=== PATIENT | male | born 1990 | race Caucasian/White ===

== ENCOUNTER 2017-09-25 17:17 | Observation (INO) | payer OTHER ==
[2017-09-25] MEDS ORDERED: SODIUM CHLORIDE 0.9% 1,000 ML IV STA (17:30)
[2017-09-25] MEDS ORDERED: PANTOPRAZOLE 40 MG/10 ML VIAL IVP STA (17:30)
[2017-09-25] MEDS ORDERED: ONDANSETRON 4 MG/2 ML VIAL IVP STA (17:30)
--- NOTE | 2017-09-25 17:35 | ED ---
General Adult HPI - General Chief complaint: Nausea/Vomiting/Diarrhea Stated complaint: Vomiting Time Seen by Provider: 09/25/17 17:26 Source: patient, RN notes reviewed Mode of arrival: ambulatory Limitations: no limitations - History of Present Illness Initial comments: Complaint and history of present illness a 27-year-old male here for complaint of nausea and vomiting for several days. The patient is a type I diabetic since age 7. Patient reports she was at [facility] last week for 2 days with DKA. Patient denies any blood in the vomit no diarrhea. Is urinating frequently. Denies any fevers. He states he's been good about controlling his sugars with his insulin. - Related Data Home Medications Medication Instructions Recorded Confirmed cloNIDine HCL [Catapres] 0.4 mg PO HS 11/01/15 09/25/17 Citalopram Hydrobromide [CeleXA] 20 mg PO DAILY 09/25/17 09/25/17 Insulin Glargine [Lantus] 20 unit SQ BID 09/25/17 09/25/17 Insulin Regular, Human [NovoLIN R] See Protocol SQ AC-TID PRN 09/25/17 09/25/17 metFORMIN HCL [Glucophage] 500 mg PO BID 09/25/17 09/25/17 Allergies Allergy/AdvReac Type Severity Reaction Status Date / Time adhesive tape Allergy Rash/Hives Verified 09/25/17 17:50 Review of Systems ROS Statement: Those systems with pertinent positive or pertinent negative responses have been documented in the HPI. You have systems denying any headache no visual acuity changes denies any chest pain denies shortness of breath nausea vomiting for the past 24 hours greenish in color no blood noted. Denies bowel movements. Frequent urinations. Denies fevers. Denies pain. All systems are reviewed. Past medical problems significant for insulin-dependent diabetes mellitus since age 7 episodes of DKA. Patient's surgeries include ear tubes when he was younger. Family history grandmother had breast cancer. He has ALLERGIES to adhesive tape. He does not smoke. Does papers. Drinks alcohol socially. ROS Other: All systems not noted in ROS Statement are negative. Past Medical History Past Medical History: Diabetes Mellitus History of Any Multi-Drug Resistant Organisms: None Reported Past Surgical History: Ear Surgery Past Psychological History: ADD/ADHD Smoking Status: Never smoker Past Alcohol Use History: Occasional Past Drug Use History: None Reported General Exam - General Exam Comments Initial Comments: General: The patient is awake and alert, insulin-dependent, vomiting multiple times over the past day or more. Feels sick. Vital signs temperature 98.2 pulse 123 respiratory rate 16 pulse ox on percent room air blood pressure 133/77 Eye: Pupils are equal, round and reactive to light, extra-ocular movements are intact ; there is normal conjunctiva bilaterally. No signs of icterus. Ears, nose, mouth and throat: There are moist mucous membranes and no oral lesions. Neck: The neck is supple, there is no tenderness . Cardiovascular: Tachycardic heart rate. No murmur, rub or gallop is appreciated. Respiratory: Lungs are clear to auscultation, respirations are non-labored, breath sounds are equal. No wheezes, stridor, rales, or rhonchi. Gastrointestinal: Nausea vomiting upset stomach no pain on palpation, active bowel sounds. Back: There is no tenderness to palpation in the midline. There is no obvious deformity. No rashes noted. Musculoskeletal: Normal ROM, no tenderness, There is no pedal edema. There is no calf tenderness or swelling. Sensation intact. Pulses equal bilaterally 2+. Neurological: CN II-XII intact, There are no obvious motor or sensory deficits. Coordination appears grossly intact. Speech is normal. No neuro deficits. Skin: Skin is warm and dry and no rashes or lesions are noted. Psychiatric: Cooperative, appropriate mood & affect, normal judgment. Limitations: no limitations Course Vital Signs 09/25/17 17:21 Temperature 98.2 F Pulse Rate 123 H Respiratory 16 Rate Blood Pressure 133/77 O2 Sat by Pulse 100 Oximetry Medical Decision Making - Medical Decision Making Decision making; patient's white count 7.7 hemoglobin 15 hematocrit of 49, potassium 4.7. CO2 6 BUN 9 creatinine 1.0 GFR greater than 60. Glucose 473. Amylase/ lipase are negative, acetone positive, urine clean. Feeling better at the first liter of IV fluids. He is receiving IV insulin and started on IV insulin drip per protocol. I discussed case with Dr. Chau on- call for the emergency room he'll see the patient in emergency room. The patient will be going to the ICU. I will discuss admission with the director of surgery - Lab Data Result diagrams: 09/25/17 17:55 09/25/17 17:55 Lab Results 09/25/17 09/25/17 09/25/17 Range/Units 17:41 17:55 17:55 WBC 7.7 (3.8-10.6) k/uL RBC 5.61 (4.30-5.90) m/uL Hgb 15.4 (13.0-17.5) gm/dL Hct 49.7 (39.0-53.0) % MCV 88.6 (80.0-100.0) fL MCH 27.5 (25.0-35.0) pg MCHC 31.0 (31.0-37.0) g/dL RDW 13.9 (11.5-15.5) % Plt Count 441 (150-450) k/uL Neutrophils % 76 % Lymphocytes % 17 % Monocytes % 5 % Eosinophils % 0 % Basophils % 1 % Neutrophils # 5.9 (1.3-7.7) k/uL Lymphocytes # 1.3 (1.0-4.8) k/uL Monocytes # 0.4 (0-1.0) k/uL Eosinophils # 0.0 (0-0.7) k/uL Basophils # 0.1 (0-0.2) k/uL Sodium 139 (137-145) mmol/L Potassium 4.7 (3.5-5.1) mmol/L Chloride 103 (98-107) mmol/L Carbon Dioxide 6 L* (22-30) mmol/L Anion Gap 30 mmol/L BUN 9 (9-20) mg/dL Creatinine 1.00 (0.66-1.25) mg/dL Est GFR (MDRD) Af Amer >60 (>60 ml/min/1.73 sqM) Est GFR (MDRD) Non-Af >60 (>60 ml/min/1.73 sqM) Glucose 473 H* (74-99) mg/dL POC Glucose (mg/dL) 418 H (75-99) mg/dL POC Glu Endocrinology Teacher ID McDaid, Mari Calcium 9.8 (8.4-10.2) mg/dL Total Bilirubin 0.5 (0.2-1.3) mg/dL AST 23 (17-59) U/L ALT 45 (21-72) U/L Alkaline Phosphatase 130 H (38-126) U/L Total Protein 8.7 H (6.3-8.2) g/dL Albumin 5.3 H (3.5-5.0) g/dL Amylase 42 (30-110) U/L Lipase 34 (23-300) U/L Urine Color Urine Appearance (Clear) Urine pH (5.0-8.0) Ur Specific Winters (1.001-1.035) Urine Protein (Negative) Urine Glucose (UA) (Negative) Urine Ketones (Negative) Urine Blood (Negative) Urine Nitrite (Negative) Urine Bilirubin (Negative) Urine Urobilinogen (<2.0) mg/dL Ur Leukocyte Esterase (Negative) Acetone, Qual Positive (Negative) 09/25/17 Range/Units 18:23 WBC (3.8-10.6) k/uL RBC (4.30-5.90) m/uL Hgb (13.0-17.5) gm/dL Hct (39.0-53.0) % MCV (80.0-100.0) fL MCH (25.0-35.0) pg MCHC (31.0-37.0) g/dL RDW (11.5-15.5) % Plt Count (150-450) k/uL Neutrophils % % Lymphocytes % % Monocytes % % Eosinophils % % Basophils % % Neutrophils # (1.3-7.7) k/uL Lymphocytes # (1.0-4.8) k/uL Monocytes # (0-1.0) k/uL Eosinophils # (0-0.7) k/uL Basophils # (0-0.2) k/uL Sodium (137-145) mmol/L Potassium (3.5-5.1) mmol/L Chloride (98-107) mmol/L Carbon Dioxide (22-30) mmol/L Anion Gap mmol/L BUN (9-20) mg/dL Creatinine (0.66-1.25) mg/dL Est GFR (MDRD) Af Amer (>60 ml/min/1.73 sqM) Est GFR (MDRD) Non-Af (>60 ml/min/1.73 sqM) Glucose (74-99) mg/dL POC Glucose (mg/dL) (75-99) mg/dL POC Glu Endocrinology Teacher ID Calcium (8.4-10.2) mg/dL Total Bilirubin (0.2-1.3) mg/dL AST (17-59) U/L ALT (21-72) U/L Alkaline Phosphatase (38-126) U/L Total Protein (6.3-8.2) g/dL Albumin (3.5-5.0) g/dL Amylase (30-110) U/L Lipase (23-300) U/L Urine Color Colorless Urine Appearance Clear (Clear) Urine pH 5.0 (5.0-8.0) Ur Specific Winters 1.016 (1.001-1.035) Urine Protein Trace H (Negative) Urine Glucose (UA) 4+ H (Negative) Urine Ketones 4+ H (Negative) Urine Blood Negative (Negative) Urine Nitrite Negative (Negative) Urine Bilirubin Negative (Negative) Urine Urobilinogen <2.0 (<2.0) mg/dL Ur Leukocyte Esterase Negative (Negative) Acetone, Qual (Negative) Disposition Clinical Impression: Diabetic ketoacidosis Disposition: ADMITTED IP TO THIS [facility] Condition: Serious Referrals: Titi Chau MD [Primary Care Provider] - 1-2 days
[2017-09-25 17:43] LABS: Glucose,Whole Blood 418 mg/dL (75-99)
[2017-09-25 18:07] LABS: Basophils # (A) 0.1 k/uL (0-0.2); Basophils % (A) 1 %; Eosinophils % (A) 0 %; HCT 49.7 % (39.0-53.0); HGB 15.4 gm/dL (13.0-17.5); Lymphocytes # (A) 1.3 k/uL (1.0-4.8); Lymphocytes % (A) 17 %; MCH 27.5 pg (25.0-35.0); MCV 88.6 fL (80.0-100.0); Mean Platelet Volume 7.2; Monocytes # (A) 0.4 k/uL (0-1.0); Monocytes % (A) 5 %; Neutrophils # (A) 5.9 k/uL (1.3-7.7); Neutrophils % (A) 76 %; Platelet Count 441 k/uL (150-450); RBC 5.61 m/uL (4.30-5.90); RDW 13.9 % (11.5-15.5); WBC 7.7 k/uL (3.8-10.6)
[2017-09-25 18:17] LABS: ALT 45 U/L (21-72); AST 23 U/L (17-59); Albumin 5.3 g/dL (3.5-5.0); Alkaline Phosphatase 130 U/L (38-126); Amylase 42 U/L (30-110); Blood Urea Nitrogen 9 mg/dL (9-20); Calcium 9.8 mg/dL (8.4-10.2); Chloride 103 mmol/L (98-107); Lipase 34 U/L (23-300); Potassium 4.7 mmol/L (3.5-5.1); Sodium 139 mmol/L (137-145); Total Bilirubin 0.5 mg/dL (0.2-1.3); Total Protein 8.7 g/dL (6.3-8.2)
[2017-09-25 18:39] LABS: Appearance,Urine Clear (Clear); Bilirubin,Urine Negative (Negative); Blood,Urine Negative (Negative); Color,Urine Colorless; Glucose,Urine (UA) 4+ (Negative); Leukocyte Esterase,Urine Negative (Negative); Nitrite,Urine Negative (Negative); Protein,Urine Trace (Negative); Specific Gravity,Urine 1.016 (1.001-1.035); Urobilinogen,Urine <2.0 mg/dL (<2.0)
[2017-09-25 18:41] LABS: Carbon Dioxide 6 mmol/L (22-30); Glucose 473 mg/dL (74-99)
[2017-09-25 18:42] LABS: Anion Gap 30 mmol/L
[2017-09-25] MEDS ORDERED: INSULIN REGULAR 100 UNIT/ML VIAL IV ONE (18:51)
[2017-09-25 19:01] LABS: Ketones,Urine 4+ (Negative)
[2017-09-25] MEDS: SODIUM CHLORIDE 0.9% 1,000 ML IV SCH ×2 (19:04→23:51)
[2017-09-25] MEDS: INSULIN REGULAR 100 UNIT in SODIUM CHLORIDE 0.9% 100 ML IV SCH (19:10)
[2017-09-25] MEDS ORDERED: ONDANSETRON 4 MG/2 ML VIAL IVP PRN (19:19)
[2017-09-25] MEDS ORDERED: NALOXONE 0.4 MG/ML 1 ML VIAL IV PRN (19:19)
[2017-09-25] MEDS ORDERED: ACETAMINOPHEN TAB 325 MG TAB PO PRN (19:19)
[2017-09-25 19:43] LABS: Glucose,Whole Blood 222 mg/dL (75-99)
[2017-09-25 20:09] LABS: Glucose,Whole Blood 225 mg/dL (75-99)
[2017-09-25] MEDS: D5-0.45% NACL WITH KCL 20MEQ/L 1,000 ML IV SCH (20:15)
[2017-09-25] MEDS: FAMOTIDINE 20 MG TAB PO SCH (20:23)
[2017-09-25 20:53] LABS: Anion Gap 23 mmol/L; Blood Urea Nitrogen 9 mg/dL (9-20); Chloride 111 mmol/L (98-107); Glucose 181 mg/dL (74-99); Magnesium 1.8 mg/dL (1.6-2.3); Phosphorus 2.4 mg/dL (2.5-4.5); Sodium 142 mmol/L (137-145)
[2017-09-25 20:59] LABS: Carbon Dioxide 8 mmol/L (22-30)
[2017-09-25 21:09] LABS: Glucose,Whole Blood 122 mg/dL (75-99)
[2017-09-25] MEDS ORDERED: Phosphorus Replacement Protoco 1 EACH MISC MISCELLANE PRN (21:34)
[2017-09-25] MEDS ORDERED: SODIUM PHOSPHATE 10 MMOL in SODIUM CHLORIDE 0.9% 250 ML IVPB ONE (21:34)
[2017-09-25] MEDS ORDERED: Magnesium Replacement Protocol 1 EACH MISC MISCELLANE PRN (21:34)
[2017-09-25 22:09] LABS: Glucose,Whole Blood 115 mg/dL (75-99)
[2017-09-25 23:03] LABS: Glucose,Whole Blood 113 mg/dL (75-99)
[2017-09-25] MEDS: MAGNESIUM SULFATE-D5W PMX 1 GM in DEXTROSE/WATER 1 100ML.BAG IVPB SCH (23:51)
[2017-09-26 00:21] LABS: Glucose,Whole Blood 122 mg/dL (75-99)
[2017-09-26 01:01] LABS: Glucose,Whole Blood 113 mg/dL (75-99)
[2017-09-26 01:02] LABS: Anion Gap 15 mmol/L; Blood Urea Nitrogen 8 mg/dL (9-20); Carbon Dioxide 14 mmol/L (22-30); Chloride 110 mmol/L (98-107); Glucose 131 mg/dL (74-99); Phosphorus 3.2 mg/dL (2.5-4.5); Potassium 3.8 mmol/L (3.5-5.1); Sodium 139 mmol/L (137-145)
[2017-09-26] MEDS ORDERED: Potassium Replacement Protocol 1 EACH MISC MISCELLANE PRN (01:18)
[2017-09-26 01:28] VITALS: BMI 25.0
[2017-09-26 01:58] LABS: Glucose,Whole Blood 140 mg/dL (75-99)
[2017-09-26] MEDS ORDERED: POTASSIUM CHLORIDE ER 20 MEQ TAB.ER PO SCH ×2 (02:00→16:00)
[2017-09-26 03:13] LABS: Glucose,Whole Blood 120 mg/dL (75-99)
[2017-09-26] MEDS: D5-0.45% NACL WITH KCL 20MEQ/L 1,000 ML IV SCH ×2 (03:53→12:21)
[2017-09-26 03:55] LABS: Glucose,Whole Blood 116 mg/dL (75-99)
[2017-09-26 05:07] LABS: Glucose,Whole Blood 120 mg/dL (75-99)
[2017-09-26 05:24] LABS: Basophils # (A) 0.1 k/uL (0-0.2); Basophils % (A) 1 %; Eosinophils % (A) 1 %; HCT 41.7 % (39.0-53.0); HGB 12.9 gm/dL (13.0-17.5); Lymphocytes % (A) 32 %; MCHC 30.8 g/dL (31.0-37.0); MCV 87.6 fL (80.0-100.0); Mean Platelet Volume 7.1; Monocytes # (A) 0.7 k/uL (0-1.0); Monocytes % (A) 8 %; Neutrophils # (A) 5.3 k/uL (1.3-7.7); Neutrophils % (A) 57 %; Platelet Count 364 k/uL (150-450); RBC 4.77 m/uL (4.30-5.90); RDW 13.8 % (11.5-15.5); WBC 9.4 k/uL (3.8-10.6)
[2017-09-26 05:37] LABS: Anion Gap 13 mmol/L; Blood Urea Nitrogen 7 mg/dL (9-20); Calcium 8.7 mg/dL (8.4-10.2); Carbon Dioxide 13 mmol/L (22-30); Chloride 111 mmol/L (98-107); Glucose 128 mg/dL (74-99); Magnesium 2.1 mg/dL (1.6-2.3); Potassium 4.1 mmol/L (3.5-5.1); Sodium 137 mmol/L (137-145)
[2017-09-26 06:14] LABS: Glucose,Whole Blood 146 mg/dL (75-99)
[2017-09-26] MEDS: SODIUM CHLORIDE 0.9% 1,000 ML IV SCH ×3 (06:32→12:21)
[2017-09-26 06:55] LABS: Glucose,Whole Blood 141 mg/dL (75-99)
[2017-09-26 08:06] LABS: Glucose,Whole Blood 186 mg/dL (75-99)
[2017-09-26] MEDS: INSULIN REGULAR 100 UNIT in SODIUM CHLORIDE 0.9% 100 ML IV SCH ×2 (08:22→10:23)
[2017-09-26] MEDS: FAMOTIDINE 20 MG TAB PO SCH (08:23)
[2017-09-26] MEDS ORDERED: HEPARIN SODIUM,PORCINE 5,000 UNIT/ML 1 ML VIAL SQ SCH (09:00)
[2017-09-26 09:06] LABS: Glucose,Whole Blood 230 mg/dL (75-99)
[2017-09-26 10:21] LABS: Glucose,Whole Blood 258 mg/dL (75-99)
[2017-09-26 10:32] LABS: Anion Gap 12 mmol/L; Blood Urea Nitrogen 5 mg/dL (9-20); Calcium 8.9 mg/dL (8.4-10.2); Carbon Dioxide 16 mmol/L (22-30); Chloride 107 mmol/L (98-107); Glucose 280 mg/dL (74-99); Phosphorus 2.2 mg/dL (2.5-4.5); Sodium 135 mmol/L (137-145)
[2017-09-26 11:07] LABS: Glucose,Whole Blood 308 mg/dL (75-99)
[2017-09-26 12:10] LABS: Glucose,Whole Blood 205 mg/dL (75-99)
[2017-09-26] MEDS ORDERED: SODIUM PHOSPHATE 10 MMOL in SODIUM CHLORIDE 0.9% 250 ML IVPB ONE (13:00)
[2017-09-26 13:03] LABS: Glucose,Whole Blood 263 mg/dL (75-99)
--- NOTE | 2017-09-26 13:45 | P.CNPUL ---
History of Present Illness Consult date: 09/26/17 Chief complaint: DKA History of present illness: A 27-year-old male patient, type I diabetic since the age of 7, maintained on a combination of Lantus 20 units twice a day and NovoLog 3 times a day based on a scale, presented to the MRSA problem because of increased nausea and vomiting a few days duration and immediately was diagnosed to be in DKA. The patient had a similar presentation to [facility] approximately a week ago and was treated for DKA and he was discharged. His blood sugars have been under poor control. The patient's HbA1c has been above 12. He has not been taking good care of himself. His blood sugars have been constantly elevated. He is denying any history of substance abuse. No alcoholism. No angina. No chest pain. No cough sputum production. No fever chills or night sweats. He had a component of an eye gap metabolic acidosis with initial anion gap was 30 and the patient's serum bicarb was low as 6. Initial blood sugar was at 473. White cell count was 7.7 and hemoglobin was at 15.4. The patient was started on IV fluids and he received more than 3 L of IV fluids and following that he was switched to D5 half-normal saline which is still running at the rate of 1 50 mL an hour. The insulin drip was initiated and titrated based on our DKA protocol and currently the patient on 1 units an hour. Most recent blood work from earlier this morning showed that the patient's gap is still not completely recovered. Clinically over is doing well. He is awake and alert following commands and answering questions. Nausea and vomiting has subsided and the patient had a breakfast this morning. We intend to give insulin drip until the gap is completely closed and will be awaiting a follow-up blood work in the afternoon. He has no other specific complaints for now. Review of Systems Constitutional: Reports fatigue, Reports lethargy, Reports weakness Eyes: denies blurred vision, denies bulging eye, denies decreased vision Ears: deny: decreased hearing, ear discharge, earache Ears, nose, mouth and throat: Denies headache, Denies sore throat Cardiovascular: Denies chest pain, Denies shortness of breath Respiratory: Denies cough Gastrointestinal: Reports nausea, Reports vomiting Genitourinary: Reports as per HPI Musculoskeletal: Denies myalgias Musculoskeletal: absent: ankle pain, ankle stiffness, ankle swelling Integumentary: Denies pruritus, Denies rash Neurological: Reports weakness Psychiatric: Denies anxiety, Denies depression Endocrine: Reports excessive sweating, Reports excessive thirst, Reports polyuria Past Medical History Past Medical History: Diabetes Mellitus Additional Past Medical History / Comment(s): Type 1 diabetes mellitus since the age of 7, previous hospitalization for DKA, poor dentition History of Any Multi-Drug Resistant Organisms: None Reported Past Surgical History: Ear Surgery Past Psychological History: ADD/ADHD Smoking Status: Never smoker Past Alcohol Use History: Occasional Past Drug Use History: None Reported Medications and Allergies Home Medications Medication Instructions Recorded Confirmed Type cloNIDine HCL [Catapres] 0.4 mg PO HS 11/01/15 09/25/17 History Citalopram Hydrobromide [CeleXA] 20 mg PO DAILY 09/25/17 09/25/17 History Insulin Glargine [Lantus] 20 unit SQ BID 09/25/17 09/25/17 History Insulin Regular, Human [NovoLIN R] See Protocol SQ AC-TID PRN 09/25/17 09/25/17 History metFORMIN HCL [Glucophage] 500 mg PO BID 09/25/17 09/25/17 History Allergies Allergy/AdvReac Type Severity Reaction Status Date / Time adhesive tape Allergy Rash/Hives Verified 09/25/17 17:50 Physical Exam Vitals: Vital Signs Temp Pulse Pulse Resp BP BP Pulse Ox 09/26/17 13:00 77 16 99/62 98 09/26/17 12:00 70 19 108/61 99 09/26/17 11:00 78 14 118/66 96 09/26/17 10:00 85 13 111/57 99 09/26/17 09:30 82 15 104/53 98 09/26/17 09:00 75 17 107/58 98 09/26/17 08:30 75 18 100/53 99 09/26/17 08:00 98.4 F 73 17 106/60 98 09/26/17 07:30 87 12 111/65 100 09/26/17 07:00 74 13 114/63 98 09/26/17 06:30 77 12 103/56 100 09/26/17 06:10 82 12 103/56 97 09/26/17 06:00 78 14 105/62 98 09/26/17 05:50 75 12 105/62 98 09/26/17 05:40 78 13 105/62 98 09/26/17 05:30 80 15 107/65 98 09/26/17 05:20 75 13 107/65 99 09/26/17 05:10 86 25 H 107/65 99 09/26/17 05:00 77 14 93/49 100 09/26/17 04:50 79 13 93/49 98 09/26/17 04:40 78 12 93/49 98 09/26/17 04:30 81 12 86/44 97 09/26/17 04:20 80 15 86/44 98 09/26/17 04:10 80 14 86/44 98 09/26/17 04:00 98.5 F 79 15 93/52 98 09/26/17 03:50 81 13 93/52 99 09/26/17 03:40 77 13 93/52 98 09/26/17 03:30 83 18 104/54 98 09/26/17 03:20 83 19 104/54 98 09/26/17 03:10 84 14 104/54 99 09/26/17 03:00 81 20 98/55 98 09/26/17 02:50 80 14 98/55 99 09/26/17 02:40 80 20 98/55 100 09/26/17 02:30 80 20 87/46 100 09/26/17 02:20 81 20 87/46 100 09/26/17 02:10 90 17 87/46 100 09/26/17 02:00 83 14 108/56 100 09/26/17 01:50 90 14 108/56 99 09/26/17 01:40 83 10 L 108/56 98 09/26/17 01:30 95 16 110/48 98 09/26/17 01:20 84 14 110/48 98 09/26/17 01:10 88 15 110/48 99 09/26/17 01:00 90 14 86/46 100 09/26/17 00:50 88 14 86/46 100 09/26/17 00:40 87 12 86/46 100 09/26/17 00:30 107 H 20 102/50 99 09/26/17 00:20 89 15 102/50 99 09/26/17 00:10 94 13 74/41 98 09/26/17 00:06 97 13 94/41 98 09/26/17 00:00 98.3 F 91 14 94/41 98 09/25/17 23:50 97 13 94/41 98 09/25/17 23:40 93 14 94/41 99 09/25/17 23:30 90 14 113/55 100 09/25/17 23:20 97 24 113/55 100 09/25/17 23:10 89 27 H 113/55 100 09/25/17 23:00 95 14 118/56 98 09/25/17 22:50 94 15 118/56 100 09/25/17 22:40 93 14 118/56 100 09/25/17 22:30 94 15 100/54 100 09/25/17 22:20 96 21 100/54 98 09/25/17 22:10 95 19 100/54 99 09/25/17 22:00 93 12 91/51 99 09/25/17 21:50 101 H 13 91/51 99 09/25/17 21:40 96 14 91/51 98 09/25/17 21:30 98 17 84/60 99 09/25/17 21:20 97 16 84/60 99 09/25/17 21:10 99 13 84/60 99 09/25/17 21:00 101 H 18 95/55 99 09/25/17 20:50 97 15 95/55 100 09/25/17 20:40 95 16 95/55 100 09/25/17 20:30 93 15 112/65 100 09/25/17 20:20 96 23 112/65 100 09/25/17 20:10 100 19 112/65 100 09/25/17 20:07 98.1 F 104 H 20 112/65 100 09/25/17 19:47 98.3 F 85 14 110/48 09/25/17 19:17 97.9 F 101 H 18 115/63 99 09/25/17 17:21 98.2 F 123 H 16 133/77 100 Intake and Output 09/25/17 09/26/17 09/26/17 22:59 06:59 14:59 Intake Total 1401.00 1650 1560.150 Output Total 1000 600 Balance 1401.00 650 960.150 Intake: IV 300 1650 1050 D5-0.45% NaCl with KCl 300 1200 1050 20Meq/l 1,000 ml @ 150 mls/hr IV .[id number] [facility] Rx# :[id number] Magnesium Sulfate-D5w Pmx 200 1 gm In Dextrose/Water 1 100ml.bag @ 100 mls/hr IVPB Q1H [facility] Rx#: [id number] Sodium Phosphate 10 mmol 250 In Sodium Chloride 0.9% 250 ml @ 125 mls/hr IVPB ONCE ONE Rx#:[id number] Amount of Fluid Infused ( 1000 ml) Intake, IV Titration 101.00 10.150 Amount Insulin Regular 100 unit 101.00 10.150 In Sodium Chloride 0.9% 100 ml @ 0.1 UNITS/KG/HR 7.33 mls/hr IV .[id number] [facility] Rx#:[id number] Oral 500 Output: Urine 1000 600 Other: Voiding Method Urinal Urinal Weight 72.57 kg 72.57 kg The patient appeared well nourished and normally developed. Vital signs as documented. Head exam is unremarkable. No scleral icterus or corneal arcus noted. Neck is without jugular venous distension, thyromegaly, or carotid bruits. Carotid upstrokes are brisk bilaterally. The patient has poor dentition , no oropharyngeal thrush. Lungs are clear to auscultation and percussion. Cardiac exam reveals the PMI to be normally sized and situated. Rhythm is regular. First and second heart sounds normal. No murmurs, rubs or gallops. Abdominal exam reveals normal bowel sounds, no masses, no organomegaly and no aortic enlargement. Extremities are nonedematous and both femoral and pedal pulses are normal.Examination of the skin revealed no evidence of significant rashes, suspicious appearing nevi or other concerning lesions. Neurologically patient is awake and alert and there is no focal logical deficits. Results - Laboratory Findings CBC and BMP: 09/26/17 04:50 09/26/17 09:59 Abnormal lab findings: Abnormal Labs 09/25/17 09/25/17 09/25/17 17:41 17:55 18:23 Hgb MCHC Sodium Chloride Carbon Dioxide 6 L* BUN Creatinine Glucose 473 H* POC Glucose (mg/dL) 418 H Phosphorus Alkaline Phosphatase 130 H Total Protein 8.7 H Albumin 5.3 H Urine Protein Trace H Urine Glucose (UA) 4+ H Urine Ketones 4+ H 09/25/17 09/25/17 09/25/17 19:41 20:08 20:19 Hgb MCHC Sodium Chloride 111 H Carbon Dioxide 8 L* BUN Creatinine Glucose 181 H POC Glucose (mg/dL) 222 H 225 H Phosphorus 2.4 L Alkaline Phosphatase Total Protein Albumin Urine Protein Urine Glucose (UA) Urine Ketones 09/25/17 09/25/17 09/25/17 21:07 22:06 23:00 Hgb MCHC Sodium Chloride Carbon Dioxide BUN Creatinine Glucose POC Glucose (mg/dL) 122 H 115 H 113 H Phosphorus Alkaline Phosphatase Total Protein Albumin Urine Protein Urine Glucose (UA) Urine Ketones 09/26/17 09/26/17 09/26/17 00:20 00:39 00:59 Hgb MCHC Sodium Chloride 110 H Carbon Dioxide 14 L BUN 8 L Creatinine Glucose 131 H POC Glucose (mg/dL) 122 H 113 H Phosphorus Alkaline Phosphatase Total Protein Albumin Urine Protein Urine Glucose (UA) Urine Ketones 09/26/17 09/26/17 09/26/17 01:56 03:11 03:52 Hgb MCHC Sodium Chloride Carbon Dioxide BUN Creatinine Glucose POC Glucose (mg/dL) 140 H 120 H 116 H Phosphorus Alkaline Phosphatase Total Protein Albumin Urine Protein Urine Glucose (UA) Urine Ketones 09/26/17 09/26/17 09/26/17 04:50 04:50 05:05 Hgb 12.9 L MCHC 30.8 L Sodium Chloride 111 H Carbon Dioxide 13 L BUN 7 L Creatinine 0.60 L Glucose 128 H POC Glucose (mg/dL) 120 H Phosphorus Alkaline Phosphatase Total Protein Albumin Urine Protein Urine Glucose (UA) Urine Ketones 09/26/17 09/26/17 09/26/17 06:11 06:54 08:04 Hgb MCHC Sodium Chloride Carbon Dioxide BUN Creatinine Glucose POC Glucose (mg/dL) 146 H 141 H 186 H Phosphorus Alkaline Phosphatase Total Protein Albumin Urine Protein Urine Glucose (UA) Urine Ketones 09/26/17 09/26/17 09/26/17 09:04 09:59 10:19 Hgb MCHC Sodium 135 L Chloride Carbon Dioxide 16 L BUN 5 L Creatinine 0.62 L Glucose 280 H POC Glucose (mg/dL) 230 H 258 H Phosphorus 2.2 L Alkaline Phosphatase Total Protein Albumin Urine Protein Urine Glucose (UA) Urine Ketones 09/26/17 09/26/17 09/26/17 11:05 12:07 13:01 Hgb MCHC Sodium Chloride Carbon Dioxide BUN Creatinine Glucose POC Glucose (mg/dL) 308 H 205 H 263 H Phosphorus Alkaline Phosphatase Total Protein Albumin Urine Protein Urine Glucose (UA) Urine Ketones Assessment and Plan Plan: Assessment 1 acute DKA with severe anion gap metabolic acidosis, improving and the patient' s anion gap is nearly closed this morning. We'll continue the insulin drip until the patient's bicarb level is above 18 and anion gap is fully close. Blood sugars under better control and the patient is on insulin drip at 1 units an hour. Electrolytes are all within normal limits 2 type 1 diabetes mellitus with for blood sugar control Plan Continue insulin drip 1 units an hour. Continue D5 normal saline at the same rate. Monitor blood sugar and a hourly basis. Repeat electrolytes and afternoon and decided the insulin drip can be switched to long-acting Lantus 20 units twice a day. We will also uses Humalog according to his sliding-scale. The patient will need diabetic education. The patient be placed on heparin subcu for DVT prophylaxis. The patient will restart back on his Celexa. We'll continue to follow.
[2017-09-26 14:22] LABS: Glucose,Whole Blood 209 mg/dL (75-99)
[2017-09-26 14:36] LABS: Anion Gap 8 mmol/L; Blood Urea Nitrogen 3 mg/dL (9-20); Calcium 8.6 mg/dL (8.4-10.2); Carbon Dioxide 19 mmol/L (22-30); Chloride 110 mmol/L (98-107); Glucose 234 mg/dL (74-99); Phosphorus 2.7 mg/dL (2.5-4.5); Potassium 3.6 mmol/L (3.5-5.1); Sodium 137 mmol/L (137-145)
--- NOTE | 2017-09-26 15:03 | HP ---
HISTORY AND PHYSICAL CHIEF COMPLAINT: Diabetic ketoacidosis. HISTORY OF PRESENT ILLNESS: This is another admission for this very noncompliant, poorly-controlled type 1 insulin diabetic. He states I am his doctor, but he has not been to the office for years. He takes NovoLog R sliding scale and Lantus. He is also on metformin and he takes clonidine. He presented to the emergency room with nausea and vomiting and was in DKA. REVIEW OF SYSTEMS: He has had no fever or chills, neurologic changes, shortness of breath, cough, hemoptysis, chest pain, heart disease, murmurs, hematemesis, melena, hematochezia, jaundice, hepatitis, hematuria, frequency, urgency, renal failure, etc. PAST MEDICAL HISTORY, FAMILY HISTORY, PERSONAL AND SOCIAL HISTORIES: All otherwise unremarkable and noncontributory. He has had myringotomy tubes and no other surgery and he is not allergic to anything. He does smoke and he drinks occasionally. 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 PHYSICAL EXAMINATION: Pulse is 99, respirations were 42 and blood pressure is 115/65. He is afebrile. In general noted to be slender, slightly dehydrated and in no acute distress. Skin was dry. Lymph nodes not enlarged. Head, ears, eyes, nose, mouth, and throat were normal except for dry mucous membranes. Neck veins were not distended. The chest is clear. Cardiac demonstrates sinus rhythm with no murmurs. The abdomen is soft, nontender. Bowel sounds are present. EXTREMITIES: Normal. Neurologically, he is intact. IMPRESSION: Diabetic ketoacidosis. PLAN: 1. Bed rest. 2. IV fluids. 3. DKA protocol. MMODL / IJN: [id number] /
[2017-09-26 15:06] LABS: Glucose,Whole Blood 194 mg/dL (75-99)
[2017-09-26] MEDS ORDERED: D5-0.45% NACL WITH KCL 20MEQ/L 1,000 ML IV SCH (15:45)
[2017-09-26 16:13] VITALS: TEMP 97.8
[2017-09-26 16:16] LABS: Glucose,Whole Blood 135 mg/dL (75-99)
[2017-09-26 17:17] VITALS: PULSE 66
[2017-09-26 17:20] LABS: Glucose,Whole Blood 118 mg/dL (75-99)
[2017-09-26] MEDS ORDERED: INSULIN ASPART 100 UNIT/ML 1 ML 10 ML VIAL SQ SCH (17:30)
[2017-09-26 18:31] VITALS: BP 117/73; RESP 20
[2017-09-26 19:53] LABS: Hemoglobin A1C 10.7 % (4.0-6.0)
[2017-09-26] MEDS ORDERED: INSULIN DETEMIR 100 UNIT/ML 10 ML VIAL SQ SCH (21:00)
[2017-09-26] MEDS ORDERED: metFORMIN 500 MG TAB PO SCH (21:00)
--- NOTE | 2017-09-27 08:40 | DS ---
DISCHARGE SUMMARY CHIEF COMPLAINT: DKA. HISTORY OF PRESENT ILLNESS AND PHYSICAL EXAM: Details of this man's history and physical can be found in the initial workup. LABORATORY STUDIES: While he was in the hospital he had laboratory studies, details which can be found in the laboratory section of his chart. COURSE IN HOSPITAL: After admission, he was placed on bedrest and started on intravenous fluids and DKA protocol. His anion gap closed and he had no nausea. Hydration improved and blood sugars came down. Sugar was down 118 and he was eating and doing well. Vital signs were normal. It was felt that he could go home and he will follow up in a few days. He is extremely noncompliant and it is difficult to know if he will adhere to a responsible program. FINAL DIAGNOSIS: Diabetic ketoacidosis. OPERATIONS: None. CONSULTATIONS: None He is improved. MMDAISHAL / CHINMAY: [id number] /
[2017-09-27] MEDS ORDERED: CITALOPRAM HYDROBROMIDE 20 MG TAB PO SCH (09:00)
== END 2017-09-26 19:02 | disposition home or self-care (01) ==
LOC: EC 17:17 → 6ICU 19:19 → INTOOBSV 19:19
PROVIDERS: ADMIT Family Medicine; ATTEND Family Medicine
DX: E10.10 Type 1 diabetes mellitus with ketoacidosis without coma (principal); F90.9 Attention-deficit hyperactivity disorder, unspecified type; Z79.899 Other long term (current) drug therapy; Z79.4 Long term (current) use of insulin; Z88.8 Allergy status to other drugs, medicaments and biological substances; Z91.19 Patient's noncompliance with other medical treatment and regimen
CPT/HCPCS: 96368 ×2; 96365; 96366 ×2; 96367; 96372; 96361; 96375; 99285; 36415; 80051 ×2; 80053; 80048; 82150; 82565 ×2; 82009; 83690; 83735 ×2; 84100 ×2; 82947 ×2; 84520 ×2; 85025 ×2; 81003; 83036; G0378 ×2; J1644; J2405; J3475; C9113; 96374

== ENCOUNTER 2022-07-12 17:36 | Emergency (ER) | payer OTHER ==
[2022-07-12] MEDS ORDERED: METOCLOPRAMIDE 5 MG/ML 2 ML VIAL IVP STA (20:22)
[2022-07-12] MEDS ORDERED: FAMOTIDINE 20 MG/2 ML VIAL IV STA (20:22)
[2022-07-12] MEDS ORDERED: SODIUM CHLORIDE 0.9% 1,000 ML IV STA (20:22)
--- NOTE | 2022-07-12 20:24 | ED ---
General Adult HPI - General Chief complaint: Nausea/Vomiting/Diarrhea Stated complaint: Vomiting Time Seen by Provider: 07/12/22 19:59 Source: patient, RN notes reviewed Mode of arrival: ambulatory Limitations: no limitations - History of Present Illness Initial comments: Patient is a pleasant 31-year-old male presenting to the emergency department with concerns for nausea and vomiting. Onset of symptoms was this morning. Patient has vomited a couple of times. Patient still has nausea. Patient does have some epigastric discomfort. Patient has had similar episode 9 times previously.Please use medication as discussed. Please follow-up with family doctor in the next 2 days of symptoms have not improved. Please return to emergency room if the symptoms increase or worsen or for any other concerns. Has concerns that he has gallbladder problems however states every time he is evaluated they tell him his gallbladder is fine. No constipation or diarrhea. No fever. - Related Data Home Medications Medication Instructions Recorded Confirmed Pantoprazole [Protonix] 40 mg PO DAILY 10/26/17 12/08/17 Celexa(Unknown Dose) 1 tab PO DAILY 12/08/17 12/08/17 Clonidine(Unknown Dose) 1 tab PO HS 12/08/17 12/08/17 Previous Rx's Medication Instructions Recorded INSULIN ASPART (NovoLOG) [NovoLOG 10 unit SQ ACHS #120 vial 12/11/17 (formulary)] Insulin Detemir (Levemir) [Levemir] 30 unit SQ HS #120 syr 12/11/17 Allergies Allergy/AdvReac Type Severity Reaction Status Date / Time adhesive tape Allergy Mild Rash/Hives Verified 12/08/17 18:24 Influenza Virus Vaccines Allergy Unknown Verified 07/12/22 18:38 Review of Systems ROS Statement: Those systems with pertinent positive or pertinent negative responses have been documented in the HPI. ROS Other: All systems not noted in ROS Statement are negative. Constitutional: Denies: fever Eyes: Denies: eye pain ENT: Denies: ear pain Respiratory: Denies: cough Cardiovascular: Denies: chest pain Endocrine: Denies: fatigue Gastrointestinal: Reports: as per HPI, abdominal pain, nausea, vomiting. Denies: diarrhea, constipation Genitourinary: Denies: dysuria Musculoskeletal: Denies: back pain Skin: Denies: rash Neurological: Denies: weakness Past Medical History Past Medical History: Diabetes Mellitus, Hyperlipidemia, Hypertension Additional Past Medical History / Comment(s): Type 1 diabetes mellitus since the age of 7, previous hospitalization for DKA, poor dentition, SCOLIOSIS, gall bladder attacks for past year, pt has been to hospital 9x for gallbladder. History of Any Multi-Drug Resistant Organisms: None Reported Past Surgical History: Ear Surgery Past Anesthesia/Blood Transfusion Reactions: No Reported Reaction Past Psychological History: ADD/ADHD Smoking Status: Never smoker Past Alcohol Use History: Occasional Past Drug Use History: None Reported - Past Family History Mother History Unknown: Yes Additional Family Medical History / Comment(s): GRANDPARENTS HAVE TYPE 2 DM Father History Unknown: Yes General Exam Limitations: no limitations General appearance: alert, in no apparent distress Head exam: Present: normocephalic Eye exam: Present: normal appearance Neck exam: Present: normal inspection Respiratory exam: Present: normal lung sounds bilaterally Cardiovascular Exam: Present: regular rate, normal rhythm Expanded Peripheral pulses: 2+: Posterior Tibialis (R), Posterior Tibialis (L) GI/Abdominal exam: Present: soft, normal bowel sounds. Absent: distended, tenderness, guarding, rebound, rigid, pulsatile mass Extremities exam: Present: normal inspection. Absent: pedal edema, calf tenderness Neurological exam: Present: alert Psychiatric exam: Present: normal affect, normal mood Skin exam: Present: normal color Course Vital Signs 07/12/22 18:34 Temperature 98.6 F Pulse Rate 99 Respiratory 20 Rate Blood Pressure 106/73 O2 Sat by Pulse 99 Oximetry Medical Decision Making - Medical Decision Making Patient reevaluated and feeling better. Abdomen soft and nontender. Patient updated. - Lab Data Result diagrams: 07/12/22 20:11 07/12/22 20:11 Lab Results 07/12/22 07/12/22 07/12/22 Range/Units 20:11 20:11 20:45 WBC 9.9 (3.8-10.6) k/uL RBC 5.17 (4.30-5.90) m/uL Hgb 14.5 (13.0-17.5) gm/dL Hct 43.9 (39.0-53.0) % MCV 84.9 (80.0-100.0) fL MCH 28.1 (25.0-35.0) pg MCHC 33.1 (31.0-37.0) g/dL RDW 13.3 (11.5-15.5) % Plt Count 380 (150-450) k/uL MPV 7.2 Neutrophils % 65 % Lymphocytes % 25 % Monocytes % 7 % Eosinophils % 1 % Basophils % 1 % Neutrophils # 6.5 (1.3-7.7) k/uL Lymphocytes # 2.5 (1.0-4.8) k/uL Monocytes # 0.7 (0-1.0) k/uL Eosinophils # 0.1 (0-0.7) k/uL Basophils # 0.1 (0-0.2) k/uL Sodium 139 (137-145) mmol/L Potassium 3.9 (3.5-5.1) mmol/L Chloride 94 L (98-107) mmol/L Carbon Dioxide 26 (22-30) mmol/L Anion Gap 19 mmol/L BUN 15 (9-20) mg/dL Creatinine 0.71 (0.66-1.25) mg/dL Est GFR (CKD-EPI)AfAm >90 (>60 ml/min/1.73 sqM) Est GFR (CKD-EPI)NonAf >90 (>60 ml/min/1.73 sqM) Glucose 91 (74-99) mg/dL Calcium 9.9 (8.4-10.2) mg/dL Total Bilirubin 1.2 (0.2-1.3) mg/dL AST 39 (17-59) U/L ALT 48 (4-49) U/L Alkaline Phosphatase 78 (38-126) U/L Total Protein 8.1 (6.3-8.2) g/dL Albumin 4.9 (3.5-5.0) g/dL Amylase 63 (30-110) U/L Lipase 63 (23-300) U/L Urine Color Yellow Urine Appearance Cloudy (Clear) Urine pH 5.5 (5.0-8.0) Ur Specific [place] 1.032 (1.001-1.035) Urine Protein 1+ H (Negative) Urine Glucose (UA) Trace H (Negative) Urine Ketones 4+ H (Negative) Urine Blood Negative (Negative) Urine Nitrite Negative (Negative) Urine Bilirubin 1+ H (Negative) Urine Urobilinogen 3.0 (<2.0) mg/dL Ur Leukocyte Esterase Negative (Negative) Urine RBC 1 (0-5) /hpf Urine WBC 3 (0-5) /hpf Ur Squamous Epith Cells 1 (0-4) /hpf Urine Mucus Many H (None) /hpf Disposition Clinical Impression: Nausea & vomiting Disposition: HOME SELF-CARE Condition: Stable Instructions (If sedation given, give patient instructions): Acute Nausea and Vomiting (ED) Additional Instructions: Please do follow-up to primary care physician in the next day or 2 for recheck. Return for not tolerating fluids, fevers, worsening or change in symptoms or other concerns. Is patient prescribed a controlled substance at d/c from ED?: No Referrals: Vance Obrien MD [Primary Care Provider] - 1-2 days Time of Disposition: 22:23
[2022-07-12 20:35] LABS: Basophils # (A) 0.1 k/uL (0-0.2); Basophils % (A) 1 %; Eosinophils # (A) 0.1 k/uL (0-0.7); Eosinophils % (A) 1 %; HCT 43.9 % (39.0-53.0); HGB 14.5 gm/dL (13.0-17.5); Lymphocytes # (A) 2.5 k/uL (1.0-4.8); Lymphocytes % (A) 25 %; MCH 28.1 pg (25.0-35.0); MCHC 33.1 g/dL (31.0-37.0); MCV 84.9 fL (80.0-100.0); Mean Platelet Volume 7.2; Monocytes # (A) 0.7 k/uL (0-1.0); Monocytes % (A) 7 %; Neutrophils # (A) 6.5 k/uL (1.3-7.7); Neutrophils % (A) 65 %; Platelet Count 380 k/uL (150-450); RBC 5.17 m/uL (4.30-5.90); RDW 13.3 % (11.5-15.5); WBC 9.9 k/uL (3.8-10.6)
[2022-07-12 20:43] LABS: ALT 48 U/L (4-49); AST 39 U/L (17-59); African American GFR (CKD) >90 (>60 ml/min/1.73 sqM); Albumin 4.9 g/dL (3.5-5.0); Alkaline Phosphatase 78 U/L (38-126); Amylase 63 U/L (30-110); Anion Gap 19 mmol/L; Blood Urea Nitrogen 15 mg/dL (9-20); Calcium 9.9 mg/dL (8.4-10.2); Carbon Dioxide 26 mmol/L (22-30); Chloride 94 mmol/L (98-107); Glucose 91 mg/dL (74-99); Lipase 63 U/L (23-300); Non-African American GFR(CKD) >90 (>60 ml/min/1.73 sqM); Potassium 3.9 mmol/L (3.5-5.1); Sodium 139 mmol/L (137-145); Total Bilirubin 1.2 mg/dL (0.2-1.3); Total Protein 8.1 g/dL (6.3-8.2)
--- NOTE | 2022-07-12 21:10 | XR ---
EXAMINATION TYPE: XR KUB 2V DATE OF EXAM: 07/12/2022 7:19 PM CLINICAL HISTORY: Umbilical pain TECHNIQUE: Single supine KUB image of the abdomen is obtained. COMPARISON: None. FINDINGS: Scattered gas is seen in non-distended small bowel loops. Gas and fecal material is seen in non-distended colon. Colonic stool volume is normal. There is no pneumoperitoneum or abnormal calcif ication appreciated. The lung bases are clear and the osseous structures are intact. IMPRESSION: No acute radiographic process.
[2022-07-12 21:19] LABS: Appearance,Urine Cloudy (Clear); Bilirubin,Urine 1+ (Negative); Blood,Urine Negative (Negative); Color,Urine Yellow; Glucose,Urine (UA) Trace (Negative); Ketones,Urine 4+ (Negative); Leukocyte Esterase,Urine Negative (Negative); Mucus,Urine Many /hpf; Nitrite,Urine Negative (Negative); PH, Urine 5.5 (5.0-8.0); Protein,Urine 1+ (Negative); RBC,Urine 1 /hpf (0-5); Specific Gravity,Urine 1.032 (1.001-1.035); Squamous Epithelial Cell,Urine 1 /hpf (0-4); WBC,Urine 3 /hpf (0-5)
[2022-07-12] MEDS ORDERED: ONDANSETRON 4 MG ODT STARTER PACK 2 TAB BTL PO STA (22:23)
[2022-07-12 22:31] VITALS: BP 129/78; PULSE 74; RESP 22; TEMP 97.9
== END 2022-07-12 22:31 | disposition home or self-care (01) ==
LOC: EC 17:36
DX: R11.2 Nausea with vomiting, unspecified (principal); E11.9 Type 2 diabetes mellitus without complications; E78.5 Hyperlipidemia, unspecified; I10 Essential (primary) hypertension; Z88.7 Allergy status to serum and vaccine; Z91.048 Other nonmedicinal substance allergy status; Z79.4 Long term (current) use of insulin; Z79.899 Other long term (current) drug therapy
CPT/HCPCS: 36415; 80053; 82150; 83690; 85025; 81001; 74018; 99284; 96374; 96375; 96361; J2765; S0119